=== PATIENT | male | born 1965 | race Caucasian/White ===

== ENCOUNTER 2017-10-02 20:41 | Emergency (ER) | payer OTHER ==
[~2017-10-02] VITALS: Ht 180.3 cm; Wt 90.7 kg
[2017-10-02] MEDS ORDERED: Omeprazole20 M1 (20:54)
[2017-10-02] MEDS ORDERED: Omeprazole20 M1 PO (20:54)
== END 2017-10-02 22:19 | disposition home or self-care (01) ==
LOC: ER 20:41
DX: H53.8 Other visual disturbances (principal); R25.3 Fasciculation; R00.1 Bradycardia, unspecified; Z79.899 Other long term (current) drug therapy
CPT/HCPCS: 70450; 93005; 93010; 99284

== ENCOUNTER → 2023-05-17 | Outpatient (CLI) | payer OTHER ==
[~2023-05-17] MED LIST: Omeprazole20 M1; Omeprazole20 M1 PO
[2023-05-17 17:40] LABS: Influenza A, PCR NEGATIVE (NEGATIVE); Influenza B, PCR NEGATIVE (NEGATIVE); Resp Syncytial Virus, PCR NEGATIVE (NEGATIVE); SARS-Cov-2 (COVID-19) PCR, MMC NEGATIVE (NEGATIVE)
== END ==
LOC: LAB SHORT 12:15 → LAB 12:15
PROVIDERS: Family Medicine
DX: J06.9 Acute upper respiratory infection, unspecified (principal)
CPT/HCPCS: 0241U

== ENCOUNTER → 2024-06-04 | Outpatient (CLI) | payer OTHER | END | disposition home or self-care (01) | LOC: PLD 06-01 07:41 → LAB 06-01 07:41 → LAB SHORT 06-01 07:41 → PLD 07:41 | DX: D22.4 Melanocytic nevi of scalp and neck (principal); D36.12 Benign neoplasm of peripheral nerves and autonomic nervous system, upper limb, including shoulder | CPT/HCPCS: 88305 ==